=== PATIENT | female | born 1995 | race Caucasian/White ===

== ENCOUNTER 2020-06-01 07:52 | Inpatient (IN) ==
[2020-06-01] MEDS ORDERED: miSOPROStoL 25 MCG TAB ONE (08:31)
[2020-06-01] MEDS ORDERED: OXYTOCIN 30 UNITS/500 ML BAG IV PRN ×2 (08:45→12:55)
[2020-06-01] MEDS ORDERED: miSOPROStoL 50 MCG TAB PO ONE (08:50)
[2020-06-01 09:18] LABS: Hematocrit (blood only) 37.2 % (37-47); Hemoglobin 12.2 g/dL (12.0-16.0); Mean Corpuscular Hemoglobin 28.6 pg (25-34); Mean Corpuscular Hgb Conc 32.8 g/dL (32-36); Mean Corpuscular Volume 87.1 fL (80-100); Mean Platelet Volume 10.8 fL (7.4-10.4); Nucleated RBC # (auto) 0.05 K/uL (0-0); Nucleated RBC % (auto) 0.4 %; Platelet Count 195 K/uL (130-400); RDW Coefficient of Variation 13.5 % (11.5-14.5); RDW Standard Deviation 42.6 fL (36.4-46.3); Red Blood Count 4.27 M/uL (4.2-5.4); White Blood Count 10.27 K/uL (4.8-10.8)
--- NOTE | 2020-06-01 11:17 | History & Physical Report ---
Date of Service June 01, 2020 Assessment & Plan (1) Elective induction of labor planned: Suki Avalos is a 24 y/o female currently at 37+4 WGA with an RAFAELA 06/18/20 as determined by LMP who is here for elective induction of . Her was complicated by gestational HTN. Plan: -admit to L&D -cytotec given at 0900 -pitocin per protocol -AROM when indicated -anticipate -A pos/ab neg/RI/GBS neg/covid neg Admission and Anticipated Discharge Date Admission Date: June 01, 2020 History of Present Illness Primary Care Provider: MILA Knight Suki Avalos is a 24 y/o female currently at 37+4 WGA with an RAFAELA 06/18/20 as determined by LMP who is here for elective induction of . Her was complicated by gestational HTN. Irregular contractions; + movement; - fluid loss; - bloody show Had regular appointments with OB. Blood type: A pos Antibody screen: neg Rubella: immune VDRL/RPR: nonreactive Gonorrhea: neg Chlamydia: neg HIV: neg HbSAg: neg GBS: neg (05/29/2020) COVID-19 negative 05/24/2020 Allergies Allergy/AdvReac Type Severity Reaction Status Date / Time Penicillins Allergy Intermediate Hives Verified 05/31/20 15:29 Home Medications Medication Instructions Recorded Confirmed Type cholecalciferol (vitamin D3) 50 2,000 units PO DAILY 12/14/18 06/01/20 History mcg (2,000 unit) capsule [id number] fumarate-FA 1 tab PO DAILY 05/11/20 06/01/20 History [] docusate sodium 100 mg PO DAILY 05/11/20 06/01/20 History Past Med/Surg History Medical History (Updated 06/01/20 @ 12:16 by Tommy Dyer MD) Abnormal biochemical finding on screening of mother, antepartum Encounter for anatomic survey Headache Hx of varicella Light-headedness Migraines Obesity Oligomenorrhea Vitamin D deficiency Surgical History H/O adenoidectomy History of bunionectomy S/P tonsillectomy [place] teeth removed Family History (Updated 05/13/20 @ 18:25 by Violetta Ocasio RN) Mother Anxiety Depression Grandmother Breast cancer Age 50 Grandfather (Paternal) No problems noted. 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 Beliefs That Will Affect Care: None marital status: marital status details: Jordon Avalos (25) [phone] Current Living Situation: Spouse Current Living Situation Comment: lives with spouse, 2 dogs, 2 cats, does not change litter current occupational status: employed current occupation: [employer] at [employer] Feels Safe at Home: Yes Childhood Exposure to Second-Hand Smoke: No caffeine: No during the past year weight has: remained stable Dental Care, Regularly: Yes Physical Activity Frequency: Daily Seatbelt Use: always Sunscreen Use: Yes Assistive Devices: None Review of Systems Review of Systems: Denies fever or chills. Denies shortness of breath or cough. Denies chest pain. Denies breast pain. Denies dysuria or hematuria. Denies leg pain or leg swelling. Denies headache or changes in vision. Physical Exam Physical Exam: General: Alert, oriented. No acute distress. Cardiac: Regular rate and rhythm, no murmurs/rubs/gallops. Respiratory: Clear to auscultation bilaterally a/p, no wheezes/rales/rhonchi. No increased work of breathing. Symmetrical chest rise. No respiratory distress. Abdomen: Gravid. Vertex position. + heart tones. Pelvic: see attending documentation Lower Extremities: No lower extremity edema or swelling. No deep calf pain. Adrián's negative bilaterally. Results & Data Results & Data ([facility]) Vital Signs (Past 12 Hours) Vital Signs Temp Pulse Resp BP 06/01/20 09:59 53 L 147/81 H 06/01/20 09:50 55 L 149/88 H 06/01/20 09:40 55 L 144/79 H 06/01/20 09:30 53 L 152/84 H 06/01/20 09:19 52 L 141/77 H 06/01/20 09:10 53 L 150/78 H 06/01/20 09:03 36.6 C 53 L 18 150/78 H 06/01/20 09:00 65 18 167/87 H 06/01/20 08:10 36.6 C 18 06/01/20 08:08 56 L 135/86 Laboratory Results Labs at admission today H.2 Hct: 37.2 WBC: 10.3 Plt: 195 Code Status & VTE Plan VTE Prophylaxis Plan VTE Prophylaxis will be ordered: Yes Supervising Physician Co-Signing Physician Notes Induction is NOT ELECTIVE, it is medically indicated by gestational hypertension - Aryan SURESH Resident Activity Tracking Resident Involvement: Resident Care Provided Care Provided: OB Delivery
[2020-06-01] MEDS: LACTATED RINGER'S 1,000 ML IV PRN ×3 (12:49→20:02)
--- NOTE | 2020-06-01 12:55 | Labor Progress Brief Note ---
Date of Service June 01, 2020 Subjective menstrual type cramping. Assessment & Plan (1) Gestational hypertension: Patient is being induced for gestational hypertension. Cervix unripe this morning, now after cytotec is able to accept ortega. Will simultaneously begin pitocin once cytotec 4-hour window is up. Epidural on request. Admission and Anticipated Discharge Date Admission Date: June 01, 2020 Physical Exam Physical Exam: /- Ortega bulb placed and inflated with 30cc of water after verbally consenting patient. Membranes intact FHT Cat 1 [place] Q1-2 mild Results & Data ([facility]) Vital Signs (Past 12 Hours) Vital Signs Temp Pulse Resp BP 06/01/20 12:51 67 163/97 H 06/01/20 12:41 61 160/88 H 06/01/20 12:31 56 L 160/86 H 06/01/20 12:15 98.2 F 18 06/01/20 12:06 98.2 F 18 06/01/20 09:59 53 L 147/81 H 06/01/20 09:50 55 L 149/88 H 06/01/20 09:40 55 L 144/79 H 06/01/20 09:30 53 L 152/84 H 06/01/20 09:19 52 L 141/77 H 06/01/20 09:10 53 L 150/78 H 06/01/20 09:03 97.9 F 53 L 18 150/78 H 06/01/20 09:00 65 18 167/87 H 06/01/20 08:10 97.9 F 18 06/01/20 08:08 56 L 135/86 Coding Level of Care Code None Diagnoses Gestational hypertension O13.9
--- NOTE | 2020-06-01 13:56 | Communication Note ---
Date of Service: June 01, 2020 L&D called re: 183/110 BP noted on monitor. Will be retaken now, patient has been having discomfort and not gotten epidural yet. May need to treat.
--- NOTE | 2020-06-01 14:06 | Communication Note ---
Date of Service: June 01, 2020 Discussion with RN caring for patient. Prior BP was taken as patient was getting up to BR and very uncomfortable, not likely a true resting pressure. Now resting in bed the BP was retaken and 136/85. Will hold off treatment for now. Considering pain management options as she gets more uncomfortable.
[2020-06-01] MEDS ORDERED: ePHEDrine sulfate 50 MG/ML AMP ONE (14:27)
[2020-06-01] MEDS ORDERED: BUPIVACAINE 0.25% 30 ML VIAL ONE (14:27)
[2020-06-01] MEDS ORDERED: fentaNYL citrate 100 MCG/2 ML VIAL ONE (14:27)
[2020-06-01] MEDS ORDERED: SODIUM CHLORIDE 0.9% INJ 10 ML VIAL ONE (14:27)
[2020-06-01] MEDS ORDERED: fentaNYL 2MCG/ML ROPIVACAINE 1.25MG/ML 100 ML BAG EPI ONE (14:28)
[2020-06-01] MEDS ORDERED: NALOXONE HCL 1 MG in SODIUM CHLORIDE 0.9% 1000ML 1,000 ML IV PRN (15:13)
[2020-06-01] MEDS ORDERED: diphenhydrAMINE 50 MG/ML VIAL IV PRN (15:13)
[2020-06-01] MEDS ORDERED: ONDANSETRON INJ 2 MG/ML 2 ML VIAL IV PRN (15:13)
[2020-06-01] MEDS ORDERED: NALOXONE HCL 0.4 MG/1 ML VIAL/CARP IV PRN (15:13)
[2020-06-01] MEDS ORDERED: ePHEDrine sulfate 50 MG/ML AMP IV PRN (15:13)
--- NOTE | 2020-06-01 15:16 | Anesthesiology Consultation ---
Date of Service June 01, 2020 Covid 19 negative on 05/24/20. Assessment & Plan Chart Review Chart Review: Patient NOT seen in Pre Admission Testing and Acceptable Risk for Labor Epidural Consults Requested none ASA ASA2 Proposed Anesthesia Anesthesia Type: Labor Epidural and CSE Risk / Benefits Reviewed With: PT / POA / Parent / Guardian, Accepts Plan and Informed Consent Obtained History Height/Weight Height: 5 ft 4 in Weight: 109.316 kg Allergies Allergy/AdvReac Type Severity Reaction Status Date / Time Penicillins Allergy Intermediate Hives Verified 05/31/20 15:29 Medications Home Medications Medication Instructions Recorded Confirmed Last Taken cholecalciferol (vitamin D3) 50 2,000 units PO DAILY 12/14/18 06/01/20 06/01/20 mcg (2,000 unit) capsule [id number] fumarate-FA 1 tab PO DAILY 05/11/20 06/01/20 06/01/20 [] docusate sodium 100 mg PO DAILY 05/11/20 06/01/20 06/01/20 Active Medications Generic Name Dose Route Start Last Admin Trade Name Freq PRN Reason Stop Dose Admin Lactated Ringer's 1,000 mls @ 125 mls/hr 06/01/20 08:45 06/01/20 14:25 Lr IV 06/03/20 08:44 999 mls/hr .Q8H PRN Infusion L&D Protocol Protocol Oxytocin 30 units in 500 mls @ 3 mls/hr 06/01/20 12:55 06/01/20 13:30 Pitocin IV 06/03/20 12:54 0.18 units/hr .Q24H PRN 3 mls/hr Labor Induction/Augmentation Titration Protocol 0.18 UNITS/HR NPO Date Last Intake of Fluids: 06/01/20 Time Last Intake of Fluids: 14:00 Date Last Intake of Solids: 06/01/20 Time Last Intake of Solids: 06:00 Past Medical History Medical History Abnormal biochemical finding on screening of mother, antepartum Encounter for anatomic survey Headache Hx of varicella Light-headedness Migraines Obesity Oligomenorrhea Vitamin D deficiency Exercise / Class Metabolic Activity II 4-5 Yardwork/Stairs/Walk up hill Past Family History Family History Mother Anxiety Depression Grandmother Breast cancer Age 50 Grandfather (Paternal) No problems noted. Grandfather (Maternal) Hypertension Other No pertinent family history Past Surgical History Surgical History H/O adenoidectomy History of bunionectomy S/P tonsillectomy [place] teeth removed Past Anesthesia History No Hx of Anesthesia Complications and No Family Hx of Anesthesia Complications History of PONV No Hx of PONV and No Hx of Motion Sickness Social History Smoking Status: Never smoker Do You Dip or Chew Tobacco: No Hx Alcohol Use: No Hx Substance Use: No substance use type: does not use Review of Systems no chest pain or sob Physical Exam Vital Signs Last Vital Signs Temp 36.8 C 06/01/20 12:15 Pulse 62 06/01/20 15:11 Resp 18 06/01/20 15:00 BP 171/79 H 06/01/20 15:11 Pulse Ox 100 06/01/20 15:10 ENMT Mouth: no TMJ abnormality Thyromental Distance: > or= 3.5 Finger Breadths Mallampati Class: II Neck normal visual inspection Respiratory normal respiratory effort Auscultation: lungs clear to auscultation bilaterally Cardiovascular Rate/Rhythm: regular rate and regular rhythm Musculoskeletal Spine: normal cervical ROM Neurologic moves all extremities Psychiatric Orientation: alert and oriented x 3 Testing Laboratory Results 06/01/20 08:57
--- NOTE | 2020-06-01 19:11 | Labor Progress Brief Note ---
Date of Service June 01, 2020 Subjective Patient comfortable with epidural, napping. Assessment & Plan (1) Gestational hypertension: continue pitocin, epidural, and toco internal monitoring. Admission and Anticipated Discharge Date Admission Date: June 01, 2020 Physical Exam Physical Exam: cervix 4/75/-2, same as prior check a few hours ago when ortega came out and AROM was done. Clear fluid leakage FHT Cat 1 Protivin difficult to trace, so IUPC placed. Initial contractions seem Q2min and 40-50 mvu each. Results & Data ([facility]) Vital Signs (Past 12 Hours) Vital Signs Temp Pulse Resp BP Pulse Ox Pulse Ox 06/01/20 19:05 75 98 06/01/20 19:03 85 94 06/01/20 19:00 73 94 06/01/20 18:58 65 127/71 06/01/20 18:56 74 94 06/01/20 18:55 68 96 06/01/20 18:51 68 94 06/01/20 18:50 71 95 06/01/20 18:48 69 127/71 06/01/20 18:45 65 96 06/01/20 18:42 69 94 06/01/20 18:40 62 96 06/01/20 18:38 65 132/75 06/01/20 18:35 67 97 06/01/20 18:30 61 18 96 06/01/20 18:28 64 129/76 06/01/20 18:25 61 97 06/01/20 18:20 72 97 06/01/20 18:18 71 127/79 06/01/20 18:15 69 97 06/01/20 18:10 67 97 06/01/20 18:08 78 122/74 06/01/20 18:05 76 97 06/01/20 18:00 78 97 06/01/20 17:58 80 117/71 06/01/20 17:55 79 98 06/01/20 17:50 79 98 06/01/20 17:48 77 133/70 06/01/20 17:45 75 98 06/01/20 17:40 78 97 06/01/20 17:38 65 129/73 06/01/20 17:35 70 97 06/01/20 17:30 98.4 F 78 18 98 06/01/20 17:28 93 H 117/68 06/01/20 17:25 78 96 06/01/20 17:20 68 95 06/01/20 17:19 69 94 06/01/20 17:18 66 118/56 L 06/01/20 17:15 61 95 06/01/20 17:10 66 94 06/01/20 17:09 61 120/59 L 06/01/20 17:05 62 98 06/01/20 17:00 98.1 F 86 18 99 06/01/20 16:59 72 122/57 L 06/01/20 16:55 74 97 06/01/20 16:50 76 97 06/01/20 16:48 71 122/61 06/01/20 16:45 69 98 06/01/20 16:40 84 98 06/01/20 16:38 61 121/56 L 06/01/20 16:35 64 98 06/01/20 16:30 72 98 06/01/20 16:28 67 131/62 06/01/20 16:25 68 99 06/01/20 16:20 65 97 06/01/20 16:19 63 119/59 L 06/01/20 16:15 61 98 06/01/20 16:10 73 97 06/01/20 16:08 67 116/57 L 06/01/20 16:05 63 97 06/01/20 16:00 72 98 06/01/20 15:57 60 122/57 L 06/01/20 15:55 69 98 06/01/20 15:54 63 124/60 06/01/20 15:51 56 L 123/56 L 06/01/20 15:50 64 98 06/01/20 15:48 60 121/60 06/01/20 15:45 60 117/55 L 97 06/01/20 15:42 60 112/58 L 06/01/20 15:40 65 98 98 06/01/20 15:39 57 L 118/58 L 06/01/20 15:36 61 116/56 L 06/01/20 15:35 63 97 06/01/20 15:33 62 120/59 L 06/01/20 15:31 59 L 124/71 06/01/20 15:30 62 97 06/01/20 15:28 65 148/68 H 06/01/20 15:25 74 98 06/01/20 15:20 71 100 06/01/20 15:15 67 97 06/01/20 15:11 62 171/79 H 06/01/20 15:10 62 100 06/01/20 15:05 70 100 06/01/20 15:01 65 164/76 H 06/01/20 15:00 67 18 100 06/01/20 14:55 66 100 06/01/20 14:50 69 100 06/01/20 14:45 62 100 06/01/20 14:31 70 118/77 06/01/20 14:21 63 148/84 H 06/01/20 14:11 56 L 140/84 06/01/20 14:02 67 136/85 06/01/20 13:51 63 183/110 H 06/01/20 13:41 59 L 164/77 H 06/01/20 13:32 67 139/85 06/01/20 13:30 18 06/01/20 13:11 60 152/94 H 06/01/20 13:01 64 168/99 H 06/01/20 12:51 67 163/97 H 06/01/20 12:41 61 160/88 H 06/01/20 12:31 56 L 160/86 H 06/01/20 12:15 98.2 F 18 06/01/20 12:06 98.2 F 18 06/01/20 09:59 53 L 147/81 H 06/01/20 09:50 55 L 149/88 H 06/01/20 09:40 55 L 144/79 H 06/01/20 09:30 53 L 152/84 H 06/01/20 09:19 52 L 141/77 H 06/01/20 09:10 53 L 150/78 H 06/01/20 09:03 97.9 F 53 L 18 150/78 H 06/01/20 09:00 65 18 167/87 H 06/01/20 08:10 97.9 F 18 06/01/20 08:08 56 L 135/86 Coding Level of Care Code None Diagnoses Gestational hypertension O13.9
--- NOTE | 2020-06-01 23:28 | Labor Progress Brief Note ---
Date of Service June 01, 2020 Subjective Comfortable with epidural Assessment & Plan Admission and Anticipated Discharge Date Admission Date: June 01, 2020 Physical Exam Physical Exam: /1 FHT Cat 1 [place] Q2 Results & Data ([facility]) Vital Signs (Past 12 Hours) Vital Signs Temp Pulse Resp BP Pulse Ox Pulse Ox 06/01/20 23:25 68 100 06/01/20 23:20 76 98 06/01/20 23:18 78 151/109 H 06/01/20 23:15 81 99 06/01/20 23:10 89 100 06/01/20 23:08 89 137/87 06/01/20 23:05 79 100 06/01/20 23:00 69 99 06/01/20 22:59 98.4 F 72 18 134/70 06/01/20 22:55 79 99 06/01/20 22:50 67 95 06/01/20 22:48 69 144/71 H 06/01/20 22:45 66 96 06/01/20 22:40 71 95 06/01/20 22:38 74 140/69 06/01/20 22:35 70 94 06/01/20 22:30 65 99 06/01/20 22:28 68 138/73 06/01/20 22:25 67 99 06/01/20 22:20 75 98 06/01/20 22:18 68 118/67 06/01/20 22:15 68 98 06/01/20 22:10 70 98 06/01/20 22:09 71 128/56 L 06/01/20 22:05 81 97 06/01/20 22:00 85 97 06/01/20 21:58 74 133/75 06/01/20 21:55 81 97 06/01/20 21:50 83 98 06/01/20 21:48 85 132/75 06/01/20 21:45 72 98 06/01/20 21:40 71 98 06/01/20 21:38 71 131/72 06/01/20 21:35 83 92 06/01/20 21:30 73 99 06/01/20 21:29 75 131/77 06/01/20 21:25 71 99 06/01/20 21:20 67 99 06/01/20 21:19 67 133/68 06/01/20 21:15 74 100 06/01/20 21:10 95 H 100 06/01/20 21:08 75 135/77 06/01/20 21:05 79 99 06/01/20 21:01 99.0 F 06/01/20 21:00 75 100 06/01/20 20:58 62 137/69 06/01/20 20:55 68 99 06/01/20 20:50 75 99 06/01/20 20:49 71 132/64 06/01/20 20:45 73 99 06/01/20 20:40 84 99 06/01/20 20:38 73 137/63 06/01/20 20:35 67 99 06/01/20 20:30 60 132/54 L 98 06/01/20 20:25 61 100 06/01/20 20:20 64 99 06/01/20 20:19 60 118/63 06/01/20 20:15 59 L 99 06/01/20 20:10 66 99 06/01/20 20:09 60 116/63 06/01/20 20:05 64 99 06/01/20 20:00 61 99 06/01/20 19:59 58 L 114/59 L 06/01/20 19:55 65 98 06/01/20 19:50 64 99 06/01/20 19:48 64 112/59 L 06/01/20 19:45 58 L 98 06/01/20 19:40 75 125/56 L 98 06/01/20 19:35 80 98 06/01/20 19:30 66 98 06/01/20 19:28 67 139/79 06/01/20 19:25 72 98 06/01/20 19:20 72 98 06/01/20 19:19 68 139/68 06/01/20 19:15 81 98 06/01/20 19:10 82 98 06/01/20 19:08 99.0 F 75 18 138/84 06/01/20 19:05 75 98 06/01/20 19:03 85 94 06/01/20 19:00 73 94 06/01/20 18:58 65 127/71 06/01/20 18:56 74 94 06/01/20 18:55 68 96 06/01/20 18:51 68 94 06/01/20 18:50 71 95 06/01/20 18:48 69 127/71 06/01/20 18:45 65 96 06/01/20 18:42 69 94 06/01/20 18:40 62 96 06/01/20 18:38 65 132/75 06/01/20 18:35 67 97 06/01/20 18:30 61 18 96 06/01/20 18:28 64 129/76 06/01/20 18:25 61 97 06/01/20 18:20 72 97 06/01/20 18:18 71 127/79 06/01/20 18:15 69 97 06/01/20 18:10 67 97 06/01/20 18:08 78 122/74 06/01/20 18:05 76 97 06/01/20 18:00 78 97 06/01/20 17:58 80 117/71 06/01/20 17:55 79 98 06/01/20 17:50 79 98 06/01/20 17:48 77 133/70 06/01/20 17:45 75 98 06/01/20 17:40 78 97 06/01/20 17:38 65 129/73 06/01/20 17:35 70 97 06/01/20 17:30 98.4 F 78 18 98 06/01/20 17:28 93 H 117/68 06/01/20 17:25 78 96 06/01/20 17:20 68 95 06/01/20 17:19 69 94 06/01/20 17:18 66 118/56 L 06/01/20 17:15 61 95 06/01/20 17:10 66 94 06/01/20 17:09 61 120/59 L 06/01/20 17:05 62 98 06/01/20 17:00 98.1 F 86 18 99 06/01/20 16:59 72 122/57 L 06/01/20 16:55 74 97 06/01/20 16:50 76 97 06/01/20 16:48 71 122/61 06/01/20 16:45 69 98 06/01/20 16:40 84 98 06/01/20 16:38 61 121/56 L 06/01/20 16:35 64 98 06/01/20 16:30 72 98 06/01/20 16:28 67 131/62 06/01/20 16:25 68 99 06/01/20 16:20 65 97 06/01/20 16:19 63 119/59 L 06/01/20 16:15 61 98 06/01/20 16:10 73 97 06/01/20 16:08 67 116/57 L 06/01/20 16:05 63 97 06/01/20 16:00 72 98 06/01/20 15:57 60 122/57 L 06/01/20 15:55 69 98 06/01/20 15:54 63 124/60 06/01/20 15:51 56 L 123/56 L 06/01/20 15:50 64 98 06/01/20 15:48 60 121/60 06/01/20 15:45 60 117/55 L 97 06/01/20 15:42 60 112/58 L 06/01/20 15:40 65 98 98 06/01/20 15:39 57 L 118/58 L 06/01/20 15:36 61 116/56 L 06/01/20 15:35 63 97 06/01/20 15:33 62 120/59 L 06/01/20 15:31 59 L 124/71 06/01/20 15:30 62 97 06/01/20 15:28 65 148/68 H 06/01/20 15:25 74 98 06/01/20 15:20 71 100 06/01/20 15:15 67 97 06/01/20 15:11 62 171/79 H 06/01/20 15:10 62 100 06/01/20 15:05 70 100 06/01/20 15:01 65 164/76 H 06/01/20 15:00 67 18 100 06/01/20 14:55 66 100 06/01/20 14:50 69 100 06/01/20 14:45 62 100 06/01/20 14:31 70 118/77 06/01/20 14:21 63 148/84 H 06/01/20 14:11 56 L 140/84 06/01/20 14:02 67 136/85 06/01/20 13:51 63 183/110 H 06/01/20 13:41 59 L 164/77 H 06/01/20 13:32 67 139/85 06/01/20 13:30 18 06/01/20 13:11 60 152/94 H 06/01/20 13:01 64 168/99 H 06/01/20 12:51 67 163/97 H 06/01/20 12:41 61 160/88 H 06/01/20 12:31 56 L 160/86 H 06/01/20 12:15 98.2 F 18 06/01/20 12:06 98.2 F 18 Coding Level of Care Code None
[2020-06-01] MEDS: fentaNYL 2MCG/ML ROPIVACAINE 1.25MG/ML 100 ML BAG EPI PRN (23:37)
[2020-06-02] MEDS: LACTATED RINGER'S 1,000 ML IV PRN (03:58)
[2020-06-02] MEDS: fentaNYL 2MCG/ML ROPIVACAINE 1.25MG/ML 100 ML BAG EPI PRN (04:31)
--- NOTE | 2020-06-02 06:29 | Delivery Summary ---
Vaginal Delivery Summary Date of Service June 02, 2020 Vaginal Delivery Summary DIAGNOSES: 1. Cooley intrauterine at 37w5d gestation. 2. Induction of labor. 3. Group B Streptococcus Neg. 4. Gestational Hypertension PROCEDURE: Spontaneous vaginal delivery and repair of second degree laceration. SURGEON: Barb Tejada MD. MEDICINE TECH: None. ESTIMATED BLOOD LOSS: 250 mL. COMPLICATIONS: None. PLACENTA: Spontaneous and intact with a 3-vessel cord. DISPOSITION: Stable to labor and delivery. DESCRIPTION: The patient pushed well and brought the head to in OA position. The infant's head was allowed to deliver with contraction force and no further active pushing, with the perineum protected during this time. The shoulders delivered easily with a maternal pushing effort. There was no nuchal cord. The right shoulder was anterior. The shoulders and body delivered without any difficulty, and the was placed on the maternal abdomen. It was vigorous and moving all extremities, and making respiratory efforts. The cord was doubly clamped by the MD and then cut by the FOB. The placenta delivered spontaneously and was noted to be intact and with a 3VC. The cervix, vagina and perineum were examined and were found to have a second degree laceration that was repaired with vicryl suture in the usual manner. The fundus was firm and lochia minimal immediately after delivery. [facility] Vaginal Delivery Charge Vaginal Delivery Codes: 25221 global code for the antepartum, delivery, and post-
[2020-06-02] MEDS ORDERED: ACETAMINOPHEN 325 MG TAB PO PRN (06:46)
[2020-06-02] MEDS ORDERED: DIPHTHERIA/TETANUS/PERTUSSIS 0.5 ML SYR/VIAL IM ONE (06:46)
[2020-06-02] MEDS ORDERED: HYDROCORTISONE ACETATE 25 MG SUPP PR PRN (06:46)
[2020-06-02] MEDS ORDERED: SUPERCREAM 0.870% 15 GM JAR EXT PRN (06:46)
[2020-06-02] MEDS ORDERED: BENZOCAINE 20% AER SPR 82.5 GM CAN EXT PRN (06:46)
[2020-06-02] MEDS ORDERED: oxyCODONE/ACETAMINOPHEN 5mg/325mg TAB PO PRN (06:46)
[2020-06-02] MEDS: DOCUSATE SODIUM 100 MG CAP PO SCH ×2 (07:39→20:43)
[2020-06-02] MEDS: PRENATAL VITAMIN 1 TAB PO SCH (07:39)
[2020-06-02] MEDS: IBUPROFEN 600 MG TAB PO PRN ×3 (07:39→20:43)
[2020-06-02] MEDS ORDERED: NIFEdipine EXTENDED REL 30 MG TABCR PO STA (08:12)
--- NOTE | 2020-06-02 09:13 | Anesthesia Procedure Note ---
Date of Service June 02, 2020 Anesthesia Post Epidural Note Vital Signs Vital Signs: Temp Pulse Resp BP Pulse Ox 36.4 C L 90 20 124/58 L 97 06/02/20 06:18 06/02/20 09:07 06/02/20 08:28 06/02/20 09:07 06/02/20 06:15 Pain Intensity Lower Abdomen: Pain Intensity: 4 Notes Mental Status: alert / awake / arousable and participated in evaluation Nausea / Vomiting: adequately controlled Pain: adequately controlled Airway Patency, RR, SpO2: stable & adequate BP & HR: stable & adequate Hydration State: stable & adequate Neuraxial Anesthesia: was administered and sensory block is resolving Anesthetic Complications: no major complications apparent Epidural: Removed without complications and With tip intact
[2020-06-03] MEDS: IBUPROFEN 600 MG TAB PO PRN ×3 (05:35→23:54)
[2020-06-03 07:36] LABS: Hematocrit (blood only) 32.2 % (37-47); Hemoglobin 10.8 g/dL (12.0-16.0); Mean Corpuscular Hemoglobin 29.1 pg (25-34); Mean Corpuscular Hgb Conc 33.5 g/dL (32-36); Mean Corpuscular Volume 86.8 fL (80-100); Mean Platelet Volume 10.6 fL (7.4-10.4); Platelet Count 148 K/uL (130-400); RDW Coefficient of Variation 13.8 % (11.5-14.5); RDW Standard Deviation 43.3 fL (36.4-46.3); Red Blood Count 3.71 M/uL (4.2-5.4); White Blood Count 15.13 K/uL (4.8-10.8)
[2020-06-03] MEDS: DOCUSATE SODIUM 100 MG CAP PO SCH ×2 (07:37→21:24)
[2020-06-03] MEDS: NIFEdipine EXTENDED REL 30 MG TABCR PO SCH (07:37)
[2020-06-03] MEDS: PRENATAL VITAMIN 1 TAB PO SCH (07:37)
--- NOTE | 2020-06-03 07:42 | Obstetrical Progress Note ---
Date of Service June 03, 2020 Assessment & Plan (1) : 24 y/o PP1 s/p after IOL for GHTN, doing well -Meeting all pp milestones -gHTN - stable, BPs appropriate on procardia 30 XL. Will need 1 wk BP check -A+/rubella immune/ -f/u 6 weeks for appt -plan for d/c tomorrow Subjective Ambulation: ambulating normally Voiding: no voiding problems Passing Gas:: Yes Diet Tolerance:: regular diet Lochia:: Small Feeding Type:: breast feeding Pain well managed with medication. Denies SPRINGER, vision change, CP, SOB, RUQ pain Review of Systems Denies fevers, chills, n/v, SPRINGER, CP, SOB Physical Exam Constitutional WD/WN, vitals as above no acute distress Respiratory normal respiratory effort, lungs clear to auscultation Cardiovascular RRR, no murmur, no edema Gastrointestinal (Abdomen) Percussion/Palpation: abdomen soft; abdomen nontender and no guarding fundus firm at umbilicus and NT Musculoskeletal BLE symmetric, nonerythematous, nontender Results & Data ([facility]) Vital Signs (Past 12 Hours) Vital Signs Temp Pulse Resp BP Pulse Ox 06/03/20 04:00 97.7 F 79 18 142/88 H 06/03/20 00:00 98.2 F 76 18 133/87 98 06/02/20 19:50 97.9 F 76 20 142/86 H 99 Laboratory Results 06/03/20 Range/Units 07:11 WBC 15.13 H (4.8-10.8) K/uL RBC 3.71 L (4.2-5.4) M/uL Hgb 10.8 L (12.0-16.0) g/dL Hct 32.2 L (37-47) % MCV 86.8 (80-100) fL MCH 29.1 (25-34) pg MCHC 33.5 (32-36) g/dL RDW Std Deviation 43.3 (36.4-46.3) fL RDW Coeff of Shahrzad 13.8 (11.5-14.5) % Plt Count 148 (130-400) K/uL MPV 10.6 H (7.4-10.4) fL
--- NOTE | 2020-06-04 05:57 | Obstetrical Progress Note ---
Date of Service <Nacho Mcgraw MD - Last Filed: 06/04/20 07:51> June 04, 2020 Assessment & Plan <Nacho Mcgraw MD - Last Filed: 06/04/20 07:51> (1) state: 24 y/o PPD2 s/p after IOL for gHTN. stable. A+, rubella immune. - BPs appropriate, 123/77 this AM. last nifedipine 30mg yesterday AM. 1 wk BP recheck. - meeting milestones - - 6 wk f/u apt - d/c home today Subjective <Nacho Mcgraw MD - Last Filed: 06/04/20 07:51> Ambulation: ambulating normally Voiding: no voiding problems Passing Gas:: Yes Diet Tolerance:: regular diet Lochia:: Small Feeding Type:: breast feeding Current Pain Level(1-10): 2 Pain is minimal. No new complaints today. Doing well. Denies headache, blurry vision, or visual changes. Review of Systems Denies fever, chills, sweats Denies shortness of breath, chest pain, palpitations. Denies breast pain. Denies dysuria. Denies headache or changes in vision. Denies nausea/vomiting. Denies numbness, tingling, weakness. Physical Exam <Nacho Mcgraw MD - Last Filed: 06/04/20 07:51> General: Alert, oriented. No acute distress. Cardiac: Regular rate and rhythm, no murmurs/rubs/gallops. Respiratory: Clear to auscultation bilaterally, no wheezes/rales/rhonchi. No respiratory distress. Abdomen: , soft, nontender. Uterine fundus firm, palpable 1 cm below umbilicus. Lower Extremities: No lower extremity edema or swelling. No deep calf pain. Adrián's negative bilaterally. Results & Data ([facility]) <Nacho Mcgraw MD - Last Filed: 06/04/20 07:51> Vital Signs (Past 12 Hours) Vital Signs Temp Pulse Resp BP Pulse Ox 06/04/20 03:55 36.6 C 66 18 123/77 98 06/03/20 23:30 36.8 C 84 18 133/88 98 Medications Administered <Norma Dumont MD - Last Filed: 06/04/20 07:58> Co-Signing Physician Notes Resident Physician Supervision Note: I interviewed and examined the patient. Discussed with Dr. Mcgraw and agree with findings and plan as documented in the note. Any exceptions or clarifications are listed here: Doing well, meeting pp milestones. No s/s PET, pt feels very well today. Stable for d/c, will need BP check. Reviewed s/s hypotension as well, pt verbalized understanding Documented By: Norma Dumont MD Resident Activity Tracking <Nacho Mcgraw MD - Last Filed: 06/04/20 07:51> Resident Involvement: Resident Care Provided Care Provided: OB Delivery
[2020-06-04 06:50] LABS: Hematocrit (blood only) 32.3 % (37-47); Hemoglobin 10.8 g/dL (12.0-16.0)
[2020-06-04] MEDS: PRENATAL VITAMIN 1 TAB PO SCH (08:58)
[2020-06-04] MEDS: DOCUSATE SODIUM 100 MG CAP PO SCH (08:58)
[2020-06-04] MEDS: NIFEdipine EXTENDED REL 30 MG TABCR PO SCH (08:58)
== END 2020-06-04 11:04 | disposition home or self-care (01) | DRG 807 ==
LOC: 4S1 07:52 → 4S2 06-02 10:01

== ENCOUNTER 2023-04-26 23:42 | Inpatient (IN) ==
[2023-04-27] MEDS ORDERED: OXYTOCIN 30 UNITS/500 ML BAG IV PRN ×3 (00:17→08:46)
[2023-04-27] MEDS ORDERED: LIDOCAINE 1% LOCAL 20 ML VIAL INFIL PRN (00:17)
--- NOTE | 2023-04-27 00:21 | History & Physical Report ---
Date of Service April 27, 2023 Assessment & Plan (1) Encounter for supervision of normal in multigravida: Plan: Admit to L&D. EFM/toco. Labs. Desires epidural, but would like to ambulate prior. History of Present Illness Chief Complaint: contractions Primary Care Provider: MILA Knight 27yo @ 40 2/7, contractions. +FM, no vaginal bleeding. Does not think leaking fluid. Prior with gHTN. Allergies Allergy/AdvReac Type Severity Reaction Status Date / Time Penicillins Allergy Intermediate Hives Verified 04/26/23 23:56 Home Medications Medication Instructions Recorded Confirmed Type cholecalciferol (vitamin D3) 50 2,000 units PO QAM 12/14/18 04/26/23 History mcg (2,000 unit) capsule prenat.vits,kell,mws-[id number]-[id number] 1 tab PO DAILY 09/15/22 04/26/23 History aspirin 81 mg capsule 81 mg PO DAILY 11/12/22 04/26/23 History breast pump #1 ea 03/17/23 04/21/23 Rx Patient History Medical History Chicken pox Depression with anxiety Gestational hypertension Migraines Nausea and vomiting after administration of anesthetic agent depression Surgical History H/O adenoidectomy History of bunionectomy S/P tonsillectomy [place] teeth removed Family History Mother Anxiety Depression Grandmother Breast cancer Grandfather (Maternal) Hypertension Other No pertinent family history Denies family history of Ovarian cancer Colorectal cancer Social History Smoking Status: Never smoker Second Hand Exposure: No; Do You Dip or Chew Tobacco: No; Hx Alcohol Use: No (currently ) Hx Substance Use: No Preferred Language: [place] Communication Ability: Effective Visual Impairment: No Limitations Hearing Ability: Normal Basketball Scout Required: No Beliefs That Will Affect Care: None marital status: marital status details: Jordon Avalos (27) [phone] Current Living Situation: Spouse Current Living Situation Comment: house with and son current occupational status: employed current occupation: Patient Access at [employer] How many Children do You have: 1 Other Information That Helps Us Care for You: No Feels Safe at Home: Yes Safety Concerns: Feels Safe At This Time Childhood Exposure to Second-Hand Smoke: No Diet: regular caffeine: No during the past year weight has: remained stable Dental Care, Regularly: Yes Physical Activity Frequency: Daily Seatbelt Use: always Sunscreen Use: Yes Assistive Devices: None Review of Systems All systems reviewed & are unremarkable except as noted in HPI & below Physical Exam Physical Exam: T Cat 1 Schulter Q 3-6 SVE 3/-2 per RN. Constitutional: WD/WN, vitals as above Respiratory: normal respiratory effort, lungs clear to auscultation no respiratory distress Cardiovascular: Rate/Rhythm: regular rate and regular rhythm Gastrointestinal (Abdomen): Inspection/Auscultation: abdomen normal to inspection Percussion/Palpation: abdomen soft; abdomen nontender Gravid. No s/s chorio or abruption. Skin: no rashes, warm and dry Psychiatric: A+Ox3, euthymic affect Results & Data Vital Signs (Past 12 Hours) Vital Signs Temp Pulse Resp BP O2 Del Method 04/26/23 23:57 36.7 C 18 Room Air 04/26/23 23:55 36.8 C 61 18 148/80 H Coding Level of Care Code None Diagnoses Encounter for supervision of normal in multigravida Z34.80
[2023-04-27] MEDS: LACTATED RINGER'S 1,000 ML IV PRN ×2 (00:29→03:02)
[2023-04-27 01:01] LABS: Hematocrit (blood only) 31.1 % (37.0-47.0); Hemoglobin 9.9 g/dl (12.0-16.0); Mean Corpuscular Hemoglobin 24.8 pg (25.0-34.0); Mean Corpuscular Hgb Conc 31.8 g/dL (32.0-36.0); Mean Corpuscular Volume 77.8 fL (80.0-100.0); Mean Platelet Volume 10.7 fL (9.4-12.4); Nucleated RBC # (auto) 0.06 K/uL (0.00-0.12); Nucleated RBC % (auto) 0.5 %; Platelet Count 204 K/uL (130-400); RDW Coefficient of Variation 13.2 % (11.5-14.5); RDW Standard Deviation 37.5 fL (36.4-46.3); White Blood Count 10.93 K/ul (4.8-10.8)
[2023-04-27 01:12] LABS: Albumin Globulin Ratio 1.1 (0.9-2); Albumin Level 3.2 gm/dl (3.4-5.0); BUN Creatinine Ratio 13.6 (10-20); Bilirubin,Total 0.4 mg/dl (0.2-1.0); Calcium 8.7 mg/dl (8.6-10.3); Creatinine Clr Calc Pharmacy 121.8 ml/min; Est GFR (African American) 116.2 ml/min; Est GFR (Non-African American) 100.2 ml/min; Potassium 4.2 mmol/L (3.5-5.1); Total Protein 6.2 gm/dl (6.0-8.3)
[2023-04-27] MEDS ORDERED: fentaNYL citrate PF 100 MCG/2 ML VIAL ONE (02:28)
[2023-04-27] MEDS ORDERED: ePHEDrine sulfate 50 MG/ML AMP ONE (02:28)
[2023-04-27] MEDS ORDERED: SODIUM CHLORIDE 0.9% PF INJ 10 ML VIAL ONE (02:28)
[2023-04-27] MEDS ORDERED: fentANYL 2 MCG/ML BUPIVacaine 0.125%-NSS 100ML BAG ONE (02:29)
[2023-04-27] MEDS ORDERED: fentaNYL citrate PF 100 MCG/2 ML VIAL EPI STA (02:29)
[2023-04-27] MEDS ORDERED: BUPIVACAINE 0.25% PF 30 ML VIAL EPI STA (02:29)
[2023-04-27] MEDS ORDERED: ONDANSETRON INJ 2 MG/ML 2 ML VIAL IV PRN (02:29)
[2023-04-27] MEDS ORDERED: ePHEDrine sulfate 50 MG/ML AMP IV PRN (02:29)
[2023-04-27] MEDS ORDERED: SODIUM CHLORIDE 0.9% PF INJ 10 ML VIAL EPI PRN (02:29)
[2023-04-27] MEDS ORDERED: fentANYL 2 MCG/ML BUPIVacaine 0.125%-NSS 100ML BAG EPI PRN (02:29)
[2023-04-27] MEDS ORDERED: ROPIVACAINE 0.5% PF 5 MG/ML 20 ML VIAL EPI PRN (02:29)
[2023-04-27] MEDS ORDERED: NALOXONE HCL 1 MG in SODIUM CHLORIDE 0.9% 1,000 ML IV PRN (02:29)
[2023-04-27] MEDS ORDERED: SODIUM CHLORIDE 0.9% PF INJ 10 ML VIAL EPI STA (02:29)
[2023-04-27] MEDS ORDERED: LIDOCAINE 2%/EPINEPHRINE 1:200,000 20 ML PF ONE (02:29)
[2023-04-27] MEDS ORDERED: BUPIVACAINE 0.25% PF 30 ML VIAL EPI PRN (02:29)
[2023-04-27] MEDS ORDERED: NALOXONE HCL 0.4 MG/1 ML VIAL/CARP IV PRN (02:29)
[2023-04-27] MEDS ORDERED: NALBUPHINE HCL INJ 10 MG/ML AMP IV PRN (02:29)
[2023-04-27] MEDS ORDERED: diphenhydrAMINE 50 MG/ML VIAL IV PRN (02:29)
[2023-04-27] MEDS ORDERED: LIDOCAINE 2%/EPINEPHRINE 1:200,000 20 ML PF EPI STA (02:29)
[2023-04-27] MEDS ORDERED: fentaNYL citrate PF 100 MCG/2 ML VIAL EPI PRN (02:29)
[2023-04-27] MEDS ORDERED: LIDOCAINE 2% MPF LOCAL 5 ML VIAL EPI PRN (02:29)
[2023-04-27] MEDS ORDERED: BUPIVACAINE 0.25% PF 30 ML VIAL ONE (02:29)
--- NOTE | 2023-04-27 02:31 | Anesthesiology Consultation ---
Date of Service April 27, 2023 Assessment & Plan ASA ASA2 Proposed Anesthesia Anesthesia Type: Labor Epidural Risk / Benefits Reviewed With: PT / POA / Parent / Guardian, Accepts Plan and Informed Consent Obtained History Height/Weight Height: 5 ft 4 in Weight: 101.151 kg Allergies Allergy/AdvReac Type Severity Reaction Status Date / Time Penicillins Allergy Intermediate Hives Verified 04/26/23 23:56 Medications Home Medications Medication Instructions Recorded Confirmed Last Taken cholecalciferol (vitamin D3) 50 2,000 units PO QAM 12/14/18 04/26/23 04/26/23 mcg (2,000 unit) capsule prenat.vits,kell,ibb-kcir-qvlhy 1 tab PO DAILY 09/15/22 04/26/23 04/26/23 aspirin 81 mg capsule 81 mg PO DAILY 11/12/22 04/26/23 04/26/23 breast pump #1 ea 03/17/23 04/21/23 Unknown Active Medications Generic Name Dose Route Start Last Admin Trade Name Freq PRN Reason Stop Dose Admin Fentanyl/Bupivacaine/Sodium Chlor 100 ml 04/27/23 02:29 04/27/23 02:58 Fentanyl 2 Mcg/Ml Bupivacaine 0.125%-Nss 100ml Bag EPI 04/28/23 02:28 100 ml PRN PRN Administration Pain R/T Labor Protocol Lactated Ringer's 1,000 mls @ 125 mls/hr 04/27/23 00:17 04/27/23 03:02 Lr IV 04/29/23 00:16 125 mls/hr .Q8H PRN Administration L&D Protocol Protocol Past Medical History Medical History depression Chicken pox Nausea and vomiting after administration of anesthetic agent Depression with anxiety Gestational hypertension Migraines hx Exercise / Class Metabolic Activity II 4-5 Yardwork/Stairs/Walk up hill Past Family History Family History Mother Anxiety Depression Grandmother Breast cancer Age 50 Grandfather (Maternal) Hypertension Other No pertinent family history Denies family history of Ovarian cancer Colorectal cancer Past Surgical History Surgical History [place] teeth removed H/O adenoidectomy History of bunionectomy S/P tonsillectomy Past Anesthesia History No Hx of Anesthesia Complications and No Family Hx of Anesthesia Complications History of PONV No Hx of PONV and No Hx of Motion Sickness Social History Smoking Status: Never smoker Do You Dip or Chew Tobacco: No Hx Alcohol Use: No (currently ) alcohol intake frequency: holidays/special occasions only Hx Substance Use: No substance use type: does not use Review of Systems denies fever/cough/ colds/ chest pain/ SOB/ ELENITA denies ELENITA Physical Exam Vital Signs Last Vital Signs Temp 37.0 C 04/27/23 02:54 Pulse 80 04/27/23 04:40 Resp 18 04/27/23 03:30 BP 153/78 H 04/27/23 04:40 Pulse Ox 98 04/27/23 04:39 O2 Del Method Room Air 04/26/23 23:57 ENMT Mouth: no TMJ abnormality and no dentition abnormality Thyromental Distance: > or= 3.5 Finger Breadths Mallampati Class: II Neck neck extension not limited Respiratory normal respiratory effort; no respiratory distress Auscultation: lungs clear to auscultation bilaterally Cardiovascular Rate/Rhythm: regular rate and regular rhythm Neurologic moves all extremities Psychiatric Orientation: alert and oriented x 3 Testing Laboratory Results 04/27/23 00:27 04/27/23 00:27 Blood Type A Positive 04/27/23 00:27 Antibody Screen NEGATIVE 04/27/23 00:27
[2023-04-27] MEDS ORDERED: ROPIVACAINE 0.5% 5 MG/ML 30 ML VIAL ONE (04:35)
[2023-04-27] MEDS ORDERED: LIDOCAINE 2% 20 MG/ML 5 ML SYR IV ONE (04:35)
--- NOTE | 2023-04-27 04:43 | Anesthesia Procedure Note ---
Date of Service April 27, 2023 Anesthesia Epidural Re-Dose Vital Signs Temp Pulse Resp BP Pulse Ox O2 Del Method 37.0 C 80 18 153/78 H 98 Room Air 04/27/23 02:54 04/27/23 04:40 04/27/23 03:30 04/27/23 04:40 04/27/23 04:39 04/26/23 23:57 Notes Pain Intensity: 8 Dilatation (cm): 3.0 Effacement (%): 75 Called by nursing to evaluate epidural as the patient is having increased pain on left side, right side numb. The epidural was re-dosed with the following medications (all medications via epidural route) after negative aspiration of the epidural catheter for CSF/HEME. 2ml 2% lidocaine with epi, 3mL ropivacaine 0.5% After Epidural Re-Dose Mental Status: alert / awake / arousable Pain: improving with treatment Airway Patency, RR, SpO2: stable & adequate BP & HR: stable & adequate
--- NOTE | 2023-04-27 07:19 | Labor Progress Brief Note ---
Date of Service April 27, 2023 Subjective Comfortable with epidural. No urge to push yet. FHT cat 1 toco Q1-2 SVE 8/100/-1 per RN Continue labor, anticipate . Assessment & Plan Admission and Anticipated Discharge Date Admission Date: April 27, 2023 Results & Data Vital Signs (Past 12 Hours) Vital Signs Temp Pulse Resp BP Pulse Ox O2 Del Method 04/27/23 07:15 36.7 C 16 04/27/23 07:14 72 99 04/27/23 07:11 68 154/78 H 04/27/23 07:09 73 99 04/27/23 07:05 71 141/74 H 04/27/23 07:04 71 99 04/27/23 06:59 74 99 04/27/23 06:56 68 120/58 L 04/27/23 06:54 67 98 04/27/23 06:49 75 98 04/27/23 06:44 69 98 04/27/23 06:40 63 119/59 L 04/27/23 06:39 68 97 04/27/23 06:34 71 99 04/27/23 06:29 71 97 04/27/23 06:26 61 119/59 L 04/27/23 06:24 75 98 04/27/23 06:19 73 99 04/27/23 06:14 66 98 04/27/23 06:10 73 138/72 04/27/23 06:09 82 98 04/27/23 06:04 81 99 04/27/23 06:00 18 04/27/23 06:00 18 04/27/23 05:59 80 98 04/27/23 05:56 84 146/70 H 04/27/23 05:54 89 98 04/27/23 05:49 84 96 04/27/23 05:44 86 96 04/27/23 05:40 75 129/74 04/27/23 05:39 73 97 04/27/23 05:34 74 97 04/27/23 05:30 18 04/27/23 05:30 18 04/27/23 05:29 80 98 04/27/23 05:25 87 139/72 04/27/23 05:24 80 97 04/27/23 05:19 104 H 99 04/27/23 05:15 36.7 C 04/27/23 05:14 78 98 04/27/23 05:10 69 132/63 04/27/23 05:09 71 98 04/27/23 05:04 72 98 04/27/23 05:00 18 04/27/23 05:00 18 04/27/23 04:59 69 98 04/27/23 04:54 80 120/60 98 04/27/23 04:52 71 133/69 04/27/23 04:50 68 134/63 04/27/23 04:49 69 98 04/27/23 04:48 75 137/69 04/27/23 04:46 71 130/60 04/27/23 04:44 97 04/27/23 04:44 83 04/27/23 04:44 80 133/63 04/27/23 04:42 67 139/62 04/27/23 04:40 80 153/78 H 04/27/23 04:39 77 98 04/27/23 04:38 73 140/73 04/27/23 04:34 69 97 04/27/23 04:29 68 98 04/27/23 04:24 63 98 04/27/23 04:22 85 134/75 04/27/23 04:19 75 99 04/27/23 04:14 69 99 04/27/23 04:09 68 98 04/27/23 04:07 65 129/66 04/27/23 04:04 76 100 04/27/23 03:59 76 98 04/27/23 03:54 69 97 04/27/23 03:52 67 121/60 04/27/23 03:49 75 98 04/27/23 03:44 64 98 04/27/23 03:39 67 98 04/27/23 03:38 63 121/59 L 04/27/23 03:34 78 100 04/27/23 03:30 18 04/27/23 03:30 18 04/27/23 03:29 73 99 04/27/23 03:24 69 127/61 99 04/27/23 03:19 73 100 04/27/23 03:14 80 98 04/27/23 03:09 78 100 04/27/23 03:07 71 157/80 H 04/27/23 03:05 80 153/70 H 04/27/23 03:04 71 100 04/27/23 03:03 78 154/92 H 04/27/23 03:01 71 149/86 H 04/27/23 02:59 73 143/87 H 100 04/27/23 02:57 73 139/82 04/27/23 02:55 76 145/91 H 04/27/23 02:54 37.0 C 67 100 04/27/23 02:53 70 150/102 H 04/27/23 02:51 83 151/90 H 04/27/23 02:49 67 100 04/27/23 02:44 66 100 04/27/23 02:39 103 H 100 04/27/23 02:38 75 149/90 H 04/27/23 02:34 98 04/27/23 02:34 64 04/27/23 02:34 70 92 04/27/23 01:00 72 145/80 H 04/26/23 23:57 36.7 C 18 Room Air 04/26/23 23:55 36.8 C 61 18 148/80 H Coding Level of Care Code None
--- NOTE | 2023-04-27 08:35 | Delivery Summary ---
Vaginal Delivery Summary Date of Service April 27, 2023 Vaginal Delivery Summary and 2nd Degree LAC Vaginal Delivery Summary: Pre-delivery diagnoses: 27yo @ 40 2/, spontaneous labor Post-delivery diagnoses: same + mild shoulder dystocia, 2nd degree laceration with right sulcal tear Procedure: spontaneous vaginal delivery, repair of 2nd degree perineal laceration and right sulcal tear Surgeon: Yajaira Devries DO Complications: none Findings: Viable female . Apgars: 8/9. Weight pending, please see nursery records Estimated blood loss: 500ml Description of delivery: The patient progressed to complete with epidural anesthesia. She then began to push. She spontaneously vaginally delivered a viable from the cephalic presentation. The head delivered in OA position. The shoulder did not immediately deliver, therefore patient was repositioned with McRobert's Maneuver and posterior shoulder delivery was attempted. The patient was then repositioned again and the anterior shoulder delivered easily. This was followed by the posterior shoulder, followed by the body. No nuchal. Approx 1 min from head to shoulders delivery. The baby was placed on mother's abdomen and a spontaneous cry was heard. The cord was doubly clamped and cut. A segment was retained for cord gases. Cord blood was obtained. The placenta was delivered spontaneously intact with a 3-vessel cord. The uterus and vagina were swept of clots and debris. IV pitocin was given. The uterus became firm. The cervix, vagina, and perineum were inspected and a 2nd degree perineal laceration was noted and repaired in standard fashion with 3-0 Vicryl. There was additionally a right vaginal sulcal tear actively bleeding, this was repaired with 3-0 Vicryl with multiple [id number] sutures, however the tissue continued to tear. I was able to stop active bleeding, however there was still a small amount of oozing across the raw edges, therefore amaya powder was applied and 4 sponges were placed in the vagina for additional pressure. Excellent hemostasis was observed. The mother and baby are recovering in stable and good condition in the room. Sponge, needle and instrument counts were correct x 2. I debriefed patient about the events of delivery. Yajaira Devries DO [facility] Vaginal Delivery Charge Vaginal Delivery Codes: 07418 global code for the antepartum, delivery, and post- Delivery Type Details: and 2nd Degree LAC
[2023-04-27] MEDS ORDERED: oxyCODONE/ACETAMINOPHEN 5mg/325mg TAB PO PRN (08:46)
[2023-04-27] MEDS ORDERED: bisacodyL 10 MG SUPP PR PRN (08:46)
[2023-04-27] MEDS ORDERED: DIPHTHERIA/TETANUS/PERTUSSIS Vaccine (Tdap, Age 7+yrs) 0.5mL SYR/VL IM ONE (08:46)
[2023-04-27] MEDS ORDERED: ACETAMINOPHEN 325 MG TAB PO PRN (08:46)
[2023-04-27] MEDS ORDERED: BENZOCAINE 20% SPRY 85 APPLN/85 GM CAN EXT PRN (08:46)
[2023-04-27] MEDS ORDERED: HYDROCORTISONE ACETATE 25 MG SUPP PR PRN (08:46)
--- NOTE | 2023-04-27 08:55 | Anesthesia Procedure Note ---
Date of Service April 27, 2023 Anesthesia Post Epidural Note Vital Signs Vital Signs: Temp Pulse Resp BP Pulse Ox O2 Del Method 36.7 C 79 16 130/58 L 99 Room Air 04/27/23 07:15 04/27/23 08:40 04/27/23 07:15 04/27/23 08:40 04/27/23 07:34 04/26/23 23:57 Notes Mental Status: alert / awake / arousable and participated in evaluation Patient Amnestic to Procedure: No Nausea / Vomiting: adequately controlled Pain: adequately controlled Airway Patency, RR, SpO2: stable & adequate BP & HR: stable & adequate Hydration State: stable & adequate Neuraxial Anesthesia: was administered and sensory block is resolving Anesthetic Complications: no major complications apparent and Pt Satisfied with anesthetic care Epidural: Removed without complications and With tip intact
--- NOTE | 2023-04-27 11:59 | Communication Note ---
Date of Service: April 27, 2023 Patient transferred to the floor. Tried to get up but was quite lightheaded. No significant bleeding noted per nursing. The pack is removed. It is sa turated but not with anything new/bright red. A little ooze noted after removing the pack, dark. Will monitor closely. Feels much better with pack removed. No hematoma noted. h/h pending.
[2023-04-27 12:30] LABS: Hematocrit (blood only) 30.1 % (37.0-47.0); Hemoglobin 9.7 g/dl (12.0-16.0)
[2023-04-27] MEDS: IBUPROFEN 600 MG TAB PO PRN (19:33)
[2023-04-27] MEDS: DOCUSATE SODIUM 100 MG CAP PO SCH (21:18)
--- NOTE | 2023-04-28 06:21 | Obstetrical Progress Note ---
Date of Service <Ila Dutton MD - Last Filed: 04/28/23 07:17> April 28, 2023 Assessment & Plan <Ila Dutton MD - Last Filed: 04/28/23 07:17> (1) Encounter for assessment: Plan Patient with the above mentioned history and findings was evaluated at bedside and found awake, alert, oriented in all spheres, afebrile, and in no acute distress. Vital signs showed no fever and blood pressures remained stable today. BP was elevated yesterday showing one measurement at 158/84, which has not recurred. Her blood type is A positive and today's hemoglobin is 7.9 g/dL (9.7 yesterday). She denies symptoms of anemia such as those she experienced yesterday such as lightheadedness, dizziness upon standing, tachycardia, or palpitations. She is GBS negative and Rubella immune. Overall, patient is doing well clinically and meeting the desired milestones. Due to decrease in hgb, patient was encouraged to ambulate and move around. Should she experience symptoms of anemia, will consider transfusion of 1 unit of PRBC. Otherwise, will continue monitoring. Will continue care. All questions were answered. <Naz Phillips MD, FACOG - Last Filed: 04/28/23 07:22> (1) Encounter for assessment: Subjective <Ila Dutton MD - Last Filed: 04/28/23 07:17> Suki is a 27 y/o female who is now PPD # 1 following at 40 2/7 weeks. Reports feeling well overall this morning. Has not had recurrence of dizziness or lightheadedness upon standing or with ambulation. Also denies other symptoms such as fevers, chills, chest pain, tachycardia, palpitations, weakness, or any other symptom. Refers mild abdominal cramping & 2/10 pain well managed on analgesics. Voiding spontaneously. Has passed flatus, but has not had a bowel movement yet. Tolerating meals overnight and able to ambulate some. Some persistent lochia with some improvement this morning. . Constitutional: no fever, no chills or no sweats Denies shortness of breath or difficulty breathing Cardiovascular: no chest pain or no palpitations Breast: no breast pain Genitourinary (female): no dysuria Neurologic: no headache(s) Denies changes in vision Physical Exam <Ila Dutton MD - Last Filed: 04/28/23 07:17> General: Alert. Oriented to person, time, and place. Afebrile. No acute distress. Eyes: pupils equal and reactive to light bilaterally, extraocular movements intact. Cardiac: Regular rate and rhythm, no murmurs/rubs/gallops. Respiratory: Clear to auscultation bilaterally. No increased work of breathing. Symmetrical chest rise. No respiratory distress. Abdomen: Soft, nontender, nondistended. Bowel sounds present. Uterus: Uterine fundus firm, mildly tender, and palpable below umbilicus. Lower Extremities: Mild bilateral swelling without pitting. No deep calf pain. Adrián's negative bilaterally. Psych: Euthymic affect. Mood and affect congruence. Regular speech rate and con tent. Results & Data <Ila Dutton MD - Last Filed: 04/28/23 07:17> Vital Signs (Past 12 Hours) Vital Signs Temp Pulse Resp BP Pulse Ox O2 Del Method 04/28/23 03:35 36.6 C 75 20 130/77 98 Room Air 04/28/23 00:35 36.6 C 78 20 131/77 96 Room Air 04/27/23 19:35 36.4 C L 83 20 134/79 97 Room Air Supervising Physician <Naz Phillips MD, FACOG - Last Filed: 04/28/23 07:22> Co-Signing Physician Notes Resident Physician Supervision Note: I interviewed and examined the patient. Discussed with Dr. Dutton and agree with findings and plan as documented in the note. Any exceptions or clarifications are listed here: Doing well. hgb now 7.9 as expected with blood loss from delivery. She was dizzy until mid afternoon yesterday and then was able to ambulate and void without difficulty. Bleeding decreased. Discussed that if ambulates and has no issues, could avoid transfusion. However, if not, would recommend one unit. Will reevaluate. Documented By: Naz Phillips MD, FACOG Resident Activity Tracking <Ila Dutton MD - Last Filed: 04/28/23 07:17> Resident Involvement: Resident Care Provided Care Provided: OB Delivery
[2023-04-28 06:35] LABS: Hematocrit (blood only) 25.1 % (37.0-47.0); Hemoglobin 7.9 g/dl (12.0-16.0)
[2023-04-28] MEDS: IBUPROFEN 600 MG TAB PO PRN (07:43)
[2023-04-28] MEDS: DOCUSATE SODIUM 100 MG CAP PO SCH (07:43)
[2023-04-28] MEDS ORDERED: PRENATAL VITAMIN 1 TAB PO SCH (08:00)
[2023-04-28] MEDS ORDERED: bisacodyL 5 MG TABEC PO SCH (20:00)
== END 2023-04-28 14:00 | disposition home or self-care (01) | DRG 807 ==
LOC: OPB 23:42 → 4S1 23:43 → 4E2 04-27 11:11